=== PATIENT | male | born 1950 | race Caucasian/White ===

== ENCOUNTER → 2018-05-02 18:25 | Outpatient (CLI) | payer MEDICARE, OTHER | END | disposition home or self-care (01) | LOC: D.MAMMO 05-01 08:15 → D.US 05-01 09:00 → D.MAMMO 11:30 | DX: N63.41 Unspecified lump in right breast, subareolar (principal) ==

== ENCOUNTER → 2018-09-27 10:05 | Outpatient (CLI) | payer MEDICARE, OTHER | END | disposition home or self-care (01) | LOC: D.MRI 10:00 | DX: G89.29 Other chronic pain (principal) ==

== ENCOUNTER → 2019-05-30 07:14 | Outpatient (CLI) | payer MEDICARE, OTHER | END | disposition home or self-care (01) | LOC: D.US 05-28 09:10 | PROVIDERS: ATTEND Internal Medicine Gastroenterology | DX: R10.9 Unspecified abdominal pain (principal) ==

== ENCOUNTER → 2019-06-11 09:10 | Outpatient (CLI) | payer MEDICARE, OTHER | END | disposition home or self-care (01) | LOC: D.MRI 09:10 | PROVIDERS: ATTEND Internal Medicine Gastroenterology | DX: R10.13 Epigastric pain (principal); R10.11 Right upper quadrant pain ==

== ENCOUNTER 2020-12-04 09:21 | Inpatient (IN) | payer MEDICARE, OTHER ==
[~2020-12-04] VITALS: Ht 175.3 cm; Wt 109.1 kg
[2020-12-15] MEDS ORDERED: CELEXA40 MG PO (10:25)
[2020-12-15] MEDS ORDERED: FUROSEMIDE40 MG PO (10:25)
[2020-12-15] MEDS ORDERED: CENTRUM MEN'S1 EACH PO (10:26)
[2020-12-15] MEDS ORDERED: DOXYCYCLINE HY100 M2 PO (10:26)
[2020-12-15] MEDS ORDERED: FLOMAX0.4 MG PO (10:27)
[2020-12-15] MEDS ORDERED: PROTONIX40 MG PO (10:27)
[2020-12-15] MEDS ORDERED: NIASPAN500 MG PO (10:28)
[2020-12-15] MEDS ORDERED: LIPITOR20 MG PO (10:28)
[2020-12-16 12:39] LABS: BILIRUBIN NEGATIVE (NEGATIVE); KETONE NEGATIVE (NEGATIVE); NITRITE NEGATIVE (NEGATIVE)
[2020-12-16 12:41] LABS: AMORPHOUS SEDIMENT <1+ LPF (NONE SEEN); BACTERIA NONE SEEN HPF (NONE SEEN); SQUAMOUS EPITHELIAL RARE HPF (0-4); WHITE CELLS - URINE RARE HPF (0-1)
[2020-12-16 13:01] LABS: BASOPHILS 0.3 % (0-2); EOSINOPHILS 2.5 % (0-7); HEMATOCRIT 39.7 % (42.0-54.0); HEMOGLOBIN 13.3 g/dL (13.5-17.5); IMMATURE GRANULOCYTES 0.3 % (0-5); MCH 29.2 pg (26.0-34.0); MCHC 33.5 g/dL (31.0-37.0); MCV 87.3 fL (80.0-100.0); MEAN PLATELET VOLUME 9.4 fL (7.4-10.4); MONOCYTES 7.7 % (2-11); NEUTROPHIL ABS# 4.79 10x3/uL (1.78-5.38); NEUTROPHILS 60.2 % (40-80); PLATELET COUNT 299 10x3/uL (130-400); RBC 4.55 10x6/uL (4.20-6.10); RDW 13.2 % (11.5-14.5); WBC 7.9 10x3/uL (4.8-10.8)
[2020-12-16 13:10] LABS: INR 1.13 (0.85-1.17); PROTIME 13.4 SECONDS (11.6-15.0)
[2020-12-16 13:11] LABS: APTT 26.8 SECONDS (22.8-39.4)
[2020-12-16 13:11] LABS: CALC OSMOLALITY 284 mosm/kg (275-300); CALCIUM 9.3 mg/dL (8.5-10.1); CARBON DIOXIDE 26.9 mmol/L (21.0-32.0); CHLORIDE - SERUM 105 mmol/L (98-107); GLUCOSE 110 mg/dL (74-106); POTASSIUM - SERUM 3.5 mmol/L (3.5-5.1); SODIUM 142 mmol/L (136-145); UREA NITROGEN 15 mg/dL (7-18); eGFR NON AFRICAN AMERICAN 78 mL/min (90-120)
[2020-12-21] VITALS (14 sets, daily range): BP systolic 110–171; BP diastolic 52–84; Ht 175.3 cm; Wt 109.1 kg
[2020-12-21] MEDS ORDERED: HYDROCODON-ACE1 EAC7 PO (06:19)
--- NOTE | 2020-12-21 11:00 | NUR ---
RECEIVED TO ROOM 1208 VIA BED FROM PACU. A/O X3. AT BEDSIDE. SKIN INTACT WITHOUT REDNESS EXCEPT INCISION TO LEFT KNEE WHICH HAS A DRY INTACT DRESSING IN PLACE AND A DAVOL DRAIN NOTED. WILL MONITOR. IV TO RIGHT FOREARM IS PATENT WITHOUT REDNESS AT INSERTION SITE. DENIES NEEDS.
--- NOTE | 2020-12-21 12:25 | NUR ---
SITTING UP IN BED EATING LUNCH. BP IS ON THE RISE FOR NOW ALSO. WILL CONTINUE TO MONITOR.
--- NOTE | 2020-12-21 15:00 | NUR ---
RESTING QUIETLY IN BED. DENIES NEEDS.
--- NOTE | 2020-12-21 18:00 | NUR ---
ATE ALL OF SUPPER. PLACED ON CPM AT THIS TIME. DENIES NEEDS. NO CHANGES NOTED.
--- NOTE | 2020-12-21 19:14 | NUR ---
PATIENT RESTING IN BED WITH NO S/S OF DISTRESS. VITALS WNL. IV INFUSING TO RIGHT FA. CPM TO LEFT KNEE. SCD AND KELLEY HOSE IN PLACE. PATIENT DENIES NEEDS AT THIS TIME. BED IN LOWEST POSITION AND CALL LIGHT IN REACH. ENCOURAGED PATIENT TO CALL WITH NEEDS.
--- NOTE | 2020-12-21 20:24 | NUR ---
ADMINISTERED MEDS PER ORDERS. PATIENT LUIS DANIEL WELL. ENCOURAGED PATIENT TO CALL WITH NEEDS.
[2020-12-22] VITALS: BP 132/61
[2020-12-22 05:44] VITALS: BP 112/75
--- NOTE | 2020-12-22 06:05 | NUR ---
D/C'D DANIELSON CATH PER ORDER
--- NOTE | 2020-12-22 06:35 | NUR ---
PLACED PATIENT ON CPM TO LEFT KNEE
[2020-12-22 07:03] LABS: BASOPHILS 0.1 % (0-2); EOSINOPHILS 0.4 % (0-7); HEMOGLOBIN 10.8 g/dL (13.5-17.5); IMMATURE GRANULOCYTES 0.3 % (0-5); LYMPHOCYTE ABS# 1.94 10x3/uL (1.32-3.57); LYMPHOCYTES 17.1 % (15-50); MCH 28.3 pg (26.0-34.0); MCHC 32.7 g/dL (31.0-37.0); MCV 86.4 fL (80.0-100.0); MEAN PLATELET VOLUME 9.7 fL (7.4-10.4); MONOCYTES 10.5 % (2-11); NEUTROPHIL ABS# 8.15 10x3/uL (1.78-5.38); NEUTROPHILS 71.6 % (40-80); PLATELET COUNT 244 10x3/uL (130-400); RBC 3.82 10x6/uL (4.20-6.10); WBC 11.4 10x3/uL (4.8-10.8)
[2020-12-22 07:19] VITALS: BP 117/48
--- NOTE | 2020-12-22 07:34 | NUR ---
AWAKE AND ALERT. ORIENTED X3. NO C/O AT THIS TIME. ON CPM. LUNGS ARE CLEAR BILATERALLY, NO COUGH NOTED. USED IS DIRECTED. SKIN IS INTACT WITHOUT REDNESS EXCEPT INCISION TO LEFT KNEE WHICH HAS A DRY INTACT DRESSING IN PLACE. DAVOL DRAIN WITH SEROUS SANGUINESS DRAINAGE NOTED. IV TO RIGHT FOREARM IS PATENT WITHOUT REDNESS AT INSERTION SITE. DENIES NEEDS.
[2020-12-22 07:51] LABS: ALBUMIN 2.7 g/dL (3.4-5.0); ANION GAP 12.1 mmol/L (8-16); BILIRUBIN - TOTAL 0.29 mg/dL (0.2-1.3); CALCIUM 8.4 mg/dL (8.5-10.1); CARBON DIOXIDE 26.4 mmol/L (21.0-32.0); CREATININE - SERUM 1.1 mg/dL (0.6-1.3); POTASSIUM - SERUM 3.5 mmol/L (3.5-5.1); PROTEIN - SERUM 5.9 g/dL (6.4-8.2)
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
[2020-12-22 12:09] VITALS: BP 111/48
--- NOTE | 2020-12-22 12:30 | NUR ---
ATE ALL OF LUNCH SITTING UP IN CHAIR. DENIES NEEDS.
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
--- NOTE | 2020-12-22 13:34 | MORECARE ---
CASE MANAGEMENT DISCHARGE SUMMARY PATIENT: TIM MATA UNIT: [id number] ADM DATE: 12/21/20 AGE: 70 : 50 SEX: M ROOM/BED: D.1208 AUTHOR: HANKDOC PHYSICIAN: REFERRING PHYSICIAN: PAOLA MAN MD DATE OF SERVICE: 12/22/20 Case Management Discharge Planning Summary DCP REVIEW SUMMARY ANTICIPATED D/C DATE: EXPECTED LOS : CASE STATUS: DCP Initiated INITIAL REVIEW: 12/21/2020 INITIAL REVIEWER: Donavon Nieto FINAL DISCHARGE DISPOSITION: : FINAL REVIEWER: FINAL REVIEW DATE: DCP Focus Questions & Answers QUESTION: ANSWER : PATIENT: TIM MATA ENCOUNTER: [id number] MEDICAL RECORD#: [id number] ADMISSION DATE: 12/21/2020 DISCHARGE DATE: ATTENDING MD: ROSALINA: AGE: 70 MARITAL STATUS: M DC PLAN ID: [id number] FACILITY: [facility] PRINTED ON: 12/22/20 13:33 CT All edits/amendments must be made on the electronic document DICTATION DATE: 12/22/201332 COMPRESSOR MECHANIC BUS: DM 12/22/20 133 RPT#: [id number] DC DATE: STATUS: ADM IN [facility] [address] [place] [address] END OF REPORT
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
--- NOTE | 2020-12-22 16:35 | NUR ---
UP TO BR WITH MIN TO SBA. VOIDED CLEAR YELLOW URINE WITHOUT DIFFICULTY. REPOSITIONED IN BED FOR COMFORT. DENIES NEEDS.
--- NOTE | 2020-12-22 18:21 | NUR ---
ATE MOST OF SUPPER. DENIES NEEDS. NO CHANGES NOTED.
--- NOTE | 2020-12-22 19:00 | NUR ---
REPORT GIVEN BY DEBORAH ROSS
--- NOTE | 2020-12-22 23:35 | NUR ---
PT C/O PAIN AT THE INCISION SITE. MEDICATION GIVEN. PT HAS BEEN VOIDING WELL ALL NIGHT USING THE URINAL. THE FIRST TIME I EMPTIED THE URINAL HE ASKED ME IF THERE WAS ANY BLOOD IN IT. I TOLD HIM NO. PT DOES WELL USING HIS WALKER WALKING TO THE BR. HE IS HOPING THAT HIS ELECTRICITY IS ON SO HE CAN GO HOME TOMORROW.
--- NOTE | 2020-12-23 00:30 | NUR ---
PT RESTING QUIETLY WITHOUT C/O
[2020-12-23 04:20] VITALS: BP 115/58
--- NOTE | 2020-12-23 06:20 | NUR ---
PT IS ON HIS CPM. HE IS STILL WEARING HIS CPAP. PT WAS MEDICATED BEFORE PLACEMENT OF CPM. PT SHOULD COME OFF THE CPM AT 0715
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
[2020-12-23 07:11] VITALS: BP 117/56
[2020-12-23 08:09] LABS: BASOPHILS 0.1 % (0-2); EOSINOPHILS 2.6 % (0-7); HEMATOCRIT 31.2 % (42.0-54.0); HEMOGLOBIN 10.3 g/dL (13.5-17.5); IMMATURE GRANULOCYTES 0.5 % (0-5); LYMPHOCYTE ABS# 2.86 10x3/uL (1.32-3.57); LYMPHOCYTES 29.7 % (15-50); MCV 87.9 fL (80.0-100.0); MEAN PLATELET VOLUME 10.1 fL (7.4-10.4); MONOCYTES 14.2 % (2-11); NEUTROPHIL ABS# 5.09 10x3/uL (1.78-5.38); NEUTROPHILS 52.9 % (40-80); PLATELET COUNT 245 10x3/uL (130-400); RBC 3.55 10x6/uL (4.20-6.10); RDW 13.3 % (11.5-14.5); WBC 9.6 10x3/uL (4.8-10.8)
[2020-12-23 08:20] LABS: ALBUMIN 2.6 g/dL (3.4-5.0); ANION GAP 12.4 mmol/L (8-16); BILIRUBIN - TOTAL 0.44 mg/dL (0.2-1.3); CALCIUM 7.8 mg/dL (8.5-10.1); CARBON DIOXIDE 28.1 mmol/L (21.0-32.0); CREATININE - SERUM 1.1 mg/dL (0.6-1.3); POTASSIUM - SERUM 3.5 mmol/L (3.5-5.1); PROTEIN - SERUM 5.6 g/dL (6.4-8.2)
--- NOTE | 2020-12-23 09:20 | NUR ---
I have reviewed this patient and I concur with the Shift Assessment completed by the Licensed Practical Nurse today this shift.
[2020-12-23 11:39] VITALS: BP 126/57
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
--- NOTE | 2020-12-23 15:52 | NUR ---
PATIENT HOME MEDICAL EQUIPMENT DELIVERED TO ROOM SHORTLY BEFORE PATIENT DC. WENT OVER DC PAPERWORK AND FOLLOW UP APPOINTMENTS WITH PATIENT. ALL QUESTIONS ANSWERED. WITH CATHETER INTACT, EXCORTED PATIENT TO FRONT VIA WC WHERE WAS WAITING.
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
--- NOTE | 2020-12-24 07:49 | OP ---
PATIENT NAME: TIM BRYANT MEDICAL RECORD: [id number] :50 LOCATION:[facility] D.1208 ADMISSION DATE:12/22/20 SURGEON: PAOLA MAN MD DATE OF OPERATION: 12/21/2020 PREOPERATIVE DIAGNOSIS: Osteoarthritis, left knee. POSTOPERATIVE DIAGNOSIS: Osteoarthritis, left knee. PROCEDURE PERFORMED: Left total knee arthroplasty. INDICATIONS FOR THE PROCEDURE: Mr. Bryant is a 70-year-old male with a history of left knee pain and arthritis. Symptoms have been progressively getting worse to the point they are beginning to affect his mobility and he has elected to proceed with surgery for left total knee arthroplasty. Risks, benefits and alternatives of surgery were discussed with the patient and consent was obtained. DESCRIPTION OF THE PROCEDURE: The patient was met in the holding area where his identity and confirmation of procedure was performed. The left lower extremity was marked. He was taken to the operating room where he was placed supine on the operating table and anesthesia was administered. Tourniquet was applied to the left thigh and left leg was prepped and draped in a sterile fashion. The patient received preoperative antibiotics as well as TXA and a timeout was performed prior to initiating the case. On initiation of the case, the leg was exsanguinated and the tourniquet was raised. Total tourniquet time was 103 minutes. A medial parapatellar approach was utilized for exposure. The knee was placed in flexion. An incision was made over the anterior knee, dissected down to the extensor mechanism. Quad tendon was then split along its medial border curving medially around the patella and extending down the medial border of the patellar tendon. Knee was then taken into extension. Tissue from the posterior fat pad of the patella over the anterior distal femur was excised. A flap of tissue off the medial tibial plateau was elevated and a portion of the medial meniscus was excised. Patella was everted and the attachment of the patellar tendon to the tibial tubercle was released to allow for this. He had quite a bit of scar tissue in the anterior aspect of his knee from previous surgery. The patella was everted. The knee was placed into flexion. Retractors were placed medial and lateral. Concordia's line was marked and the cruciate ligaments were excised. Our femoral tunnel was then drilled. The intramedullary femoral guide was placed and our distal femoral cutting block was pinned into position. Distal femur cut was completed. The femur was then sized to a size 5. Our 4-in-1 cutting block was pinned into place and our anterior, posterior and chamfer cuts were completed. Trial for a box cut was then placed and adjusted for position over the distal femur. It was pinned into place and our box cut was completed using reciprocating saw and osteotome. Bony pieces were removed. The guide was removed and osteophytes were removed from around the distal femur. PCL retractor was placed. We then turned our attention to the tibia. Tibia was retracted anteriorly. The remainder of the medial and lateral menisci was excised. Our extramedullary tibial guide was placed and adjusted for alignment taking 4 mm off the medial tibial plateau. The tibial cut was completed and the bony piece was removed. Our femoral trial was placed along with the tibial trial with the size 9 poly and it was felt to have good fit and stability throughout range of motion. The knee was again repositioned in flexion. The trial components were removed. Our tibia was sized to a size 5 and the plate was pinned into place. Our tibia was then prepared using a punch. OPERATIVE REPORT [id number] TIM BRYANT We then turned our attention to the patella. The patella was everted and a caliper was used to assess the width. It was then cut to the floor of the lateral facet. The patella was sized to a size 33 and drilled. Laminar soaker helper was then inserted with the knee in flexion and osteophytes were removed from the posterior aspect of the distal femur. Osteophytes were also removed from the medial aspect of the tibia. The knee was irrigated thoroughly with saline. Joint solution was injected around the capsule of the proximal tibia and the distal femur. Bony ends were dried and the final components were then cemented into place. The tibia was cemented, followed by the femur. Excess cement was removed throughout this process. The trial poly was placed and the knee was held in full extension while the cement was allowed to dry. The patella was held with a patellar clamp. Once the cement was dry and any excess was removed. Knee was again taken through range of motion with a size 9 poly, felt to have good fit and stability throughout range of motion. All trial poly was removed and our final poly was placed and tapped into position. It was again taken through range of motion, had good fit and stability. The knee was irrigated thoroughly with saline. A drain was placed in the lateral gutter. The extensor mechanism was then closed with #1 Vicryl suture. Subcutaneous tissues were irrigated thoroughly with saline. Subcutaneous tissue was closed with 2-0 Vicryl and the skin was closed with kasie. A sterile dressing was placed. The patient was turned back over to anesthesia where he was awakened and taken to recovery room in stable condition. POSTOPERATIVE PLAN: The patient is going to be admitted for routine postoperative care. He received 24 hours postoperative antibiotics, to be started on DVT prophylaxis tomorrow. Physical therapy will be consulted to assist with mobilization, weightbearing as tolerated, left lower extremity. PLAN: Home with home health. COMPLICATIONS: None. ESTIMATED BLOOD LOSS: 50 mL. ANESTHESIA: Spinal with peripheral nerve block. TRANSINT:[id number] Voice Confirmation ID: [id number] DOCUMENT ID: [id number] PAOLA MAN MD at 0749 CC: [id number] DICTATION DATE: 12/21/20 1048 METAL MINER: 12/21/20 1648 DIS IN 12/23/20 [facility] [address] [place] [address]
== END 2020-12-23 15:55 | disposition home or self-care (01) | DRG 470 ==
LOC: D.M3 12-21 05:38 → D.SDCHOLD 12-21 05:38 → OBSVTIME 12-21 05:38 → D.M3 12-21 05:38 → D.SDCHOLD 12-21 07:30 → D.M3 12-21 10:39
PROVIDERS: Family Medicine; ADMIT Orthopaedic Surgery; ATTEND Orthopaedic Surgery
PROC: 0SRD0J9 Replacement of Left Knee Joint with Synthetic Substitute, Cemented, Open Approach (ICD-10-PCS; principal; 2020-12-21 07:45)
DX: M17.12 Unilateral primary osteoarthritis, left knee (principal); K21.9 Gastro-esophageal reflux disease without esophagitis; F32.9 Major depressive disorder, single episode, unspecified; G47.33 Obstructive sleep apnea (adult) (pediatric); K59.00 Constipation, unspecified